=== PATIENT | female | born 1935 | race Caucasian/White ===

== ENCOUNTER 2018-04-15 23:31 | Inpatient (IN) | payer MEDICARE, BC ==
[~2018-04-15] VITALS: Ht 152.4 cm; Wt 83.3 kg
[~2018-04-15 23:31] MED LIST: AMOXICILLIN 50500 MG PO; COUMADIN 2 MG TA2 M1 PO; COUMADIN 3 MG TA3 M1 PO; COUMADIN 5 MG TA5 M1 PO; DIGOXIN125 MCG PO; FISH OIL 1,001000 M2 PO; FUROSEMIDE 20 M20 MG PO; HYDROCHLOROTH12.5 MG PO; KLOR-CON 1010 MEQ PO; LISINOPRIL40 MG PO; MAXZIDE-25 MG1 EACH PO; MECLIZINE HCL25 MG PO; MUCINEX TA600 MG/TA1 PO; OMEGA-31000 M1 PO; ONDANSETRON HCL4 M2 PO; PREDNISONE 20 M20 MG PO; PRINIVIL40 MG PO; SIMVASTATIN20 MG PO; TOPROL XL100 MG PO; TOPROL XL200 MG PO; VITAMIN D1000 UNI1 PO; ZOCOR40 MG PO
[2018-04-15 23:34] VITALS: BP 128/89
[2018-04-15] MEDS ORDERED: ARICEPT10 M1 PO (23:43)
[2018-04-16 00:01] LABS: ABSOLUTE BASOPHILS 0.1 thou/uL (0.0-0.2); ABSOLUTE EOSINOPHILS 0.3 thou/uL (0.0-0.7); ABSOLUTE LYMPHOCYTES 1.5 thou/uL (0.8-5.3); ABSOLUTE MONOCYTES 0.7 thou/uL (0.0-1.2); ABSOLUTE NEUTROPHILS 3.5 thou/uL (1.6-8.1); BASOPHILS 1.3 %; EOSINOPHILS 4.2 %; HEMATOCRIT 41.5 % (37.0-47.0); HEMOGLOBIN 13.8 gm/dL (12.0-15.0); LYMPHOCYTES 25.5 %; MCH 31.7 pg (26.0-34.0); MCHC 33.4 g/dL (28.0-37.0); MONOCYTES 11.1 %; MPV 9.2 fl. (7.2-11.1); NUCLEATED RBCS 0 /100WBC; PLATELET COUNT* 136 thou/uL (150-400); POLYS 57.9 %; RBC 4.36 mil/uL (4.20-5.00); RDW-CV 13.4 % (10.5-14.5)
[2018-04-16 00:10] LABS: APTT 36.3 Seconds (25.0-31.3); INR 2.5; PROTIME 24.1 Seconds (9.20-11.50)
[2018-04-16 00:22] LABS: ANION GAP 2 mmol/L (7-16); BUN 14 mg/dL (7-18); CALCIUM 8.5 mg/dL (8.5-10.1); CHLORIDE 105 mmol/L (98-107); CO2 32 mmol/L (21-32); CREATININE 0.8 mg/dL (0.6-1.3); GLUCOSE 94 mg/dL (70-99); POTASSIUM 3.2 mmol/L (3.5-5.1); SODIUM 139 mmol/L (136-145)
[2018-04-16 00:34] LABS: ALBUMIN 3.4 g/dL (3.4-5.0); ALKALINE PHOSPHATASE 58 U/L (46-116); NT-PRO BRAIN NAT PEPTIDE 425 pg/mL (<300); SGOT 20 U/L (15-37); SGPT 18 U/L (30-65); TOTAL BILIRUBIN 0.5 mg/dL (<0.1-1.0); TOTAL PROTEIN 6.4 g/dL (6.4-8.2); TROPONIN-I LEVEL <0.06 ng/mL (<0.06)
[2018-04-16 00:45] VITALS: BP 128/48
[2018-04-16 01:00] VITALS: BP 141/73
[2018-04-16 04:00] VITALS: BP 128/64
[2018-04-16 08:43] VITALS: BP 121/61
[2018-04-16 10:25] VITALS: BP 121/61
--- NOTE | 2018-04-16 15:55 | EKG ---
[place] [address] ELECTROCARDIOGRAM REPORT Name: FELIPE SINGER Room: [address] IN M.R.#: [id number] Admission: 04/16/18 Attend Phys: Neymar Oseguera MD Discharge: 04/16/18 Date of : 31 Report #: [id number] THIS REPORT FOR: //name// [facility] ED Test Date: 2018-04-15 Test Time: 23:41:04 Pat Name: FELIPE SINGER Department: Room: [facility] Gender: F Swatch Checker: [place] : 1935 Requested By: Carlos Alvarado Order Number: [id number] MD: Kian Johnston Measurements Intervals [place] Rate: 71 P: GA: QRS: -82 QRSD: 184 T: 102 QT: 459 QTc: 499 Interpretive Statements Afib/flut and V-paced complexes No further analysis attempted due to paced rhythm Compared to ECG 11/08/2016 02:42:11 Early repolarization no longer present Prolonged QT interval no longer present Electronically Signed On 04-16-2018 15:55:37 CDT by Kian Johnston [email or web address] <ELECTRONICALLY SIGNED> By: Kian Johnston MD, [facility] 04/16/18 1555 [id number] Kian Johnston MD, [facility] /EPI
== END 2018-04-16 11:15 | disposition home or self-care (01) | DRG 292 ==
LOC: M.ERS 23:31 → M.TBA-ER 04-16 00:38 → M.2W 04-16 00:38
PROVIDERS: Family Medicine; ADMIT Internal Medicine
DX: I11.0 Hypertensive heart disease with heart failure (principal); J96.10 Chronic respiratory failure, unspecified whether with hypoxia or hypercapnia; I50.23 Acute on chronic systolic (congestive) heart failure; I42.9 Cardiomyopathy, unspecified; J98.01 Acute bronchospasm; E89.0 Postprocedural hypothyroidism; I48.91 Unspecified atrial fibrillation; Z90.79 Acquired absence of other genital organ(s); Z95.0 Presence of cardiac pacemaker; Z85.828 Personal history of other malignant neoplasm of skin; Z98.42 Cataract extraction status, left eye; Z98.41 Cataract extraction status, right eye; Z79.01 Long term (current) use of anticoagulants; Z79.899 Other long term (current) drug therapy

== ENCOUNTER 2018-09-27 03:47 | Inpatient (IN) | payer MEDICARE, BC ==
[~2018-09-27] VITALS: Ht 162.6 cm; Wt 75.7 kg
--- NOTE | ~2018-09-27 | OP ---
[address] [address] OPERATIVE REPORT Name: FELIPE SINGER Room: [address] IN ..#: [id number] Admission: 09/27/18 Attend Phys: Elpidio Ospina, Discharge: 09/30/18 Date of : 31 Report #: [id number] THIS REPORT FOR: //name// CC: Kenyon Ospina DATE OF SERVICE: 09/28/2018 PREOPERATIVE DIAGNOSIS: Left closed valgus impacted femoral neck fracture. POSTOPERATIVE DIAGNOSIS: Left closed valgus impacted femoral neck fracture. SURGEON: Amy Rosa DO. RAISER HELPER: Irwin Park DO ANESTHESIA: General. PROCEDURE: 1. In situ fixation of left hip with cannulated screws. 2. Intraoperative physician guided fluoroscopy. ESTIMATED BLOOD LOSS: 100 mL. SPECIMENS: None. DRAINS: None. COMPLICATIONS: None. CONDITION: The patient is stable. DISPOSITION: PACU to Med/Surg floor. ANTIBIOTICS: 2 grams Ancef IV preoperatively. IMPLANTS: Sage 6.7 and 8.0 mm cannulated screw system. INDICATIONS FOR PROCEDURE: The patient is an 83-year-old female who fell onto her left side approximately 2 days ago. She presented to [facility]. X-rays were done, which showed a left femoral neck fracture. A CT confirmed this femoral neck fracture to be valgus impacted and minimally displaced. We did recommend ORIF of the left hip with cannulated screws. She had been seen by Internal Medicine. She was noted to have an INR of 2.2. This subsequently was down and 1.7 the morning of surgery. Therefore, the decision was made to proceed. The benefits, risks, complications, alternatives of this [address] [address] OPERATIVE REPORT Name: FELIPE SINGER Room: [address] IN M.R.#: [id number] Admission: 09/27/18 Attend Phys: Elpidio Ospina, Discharge: 09/30/18 Date of : 33 Report #: [id number] procedure were discussed with the patient in detail. These include but are not limited to bleeding, surgical site infection, neurovascular compromise, malunion, nonunion, hardware failure, continued pain, need for further surgery, DVT, PE as well as the inherent risks of anesthesia. The patient understands these risks and is agreeable to proceed. Consent signed in the preoperative holding area and on the chart at the time of surgery, operative site was marked. DESCRIPTION OF PROCEDURE: The patient was brought to the operating room and placed supine on the operating table. She was administered general anesthetic. She was placed onto the Central fracture table and the left leg placed in the traction boot. The well leg was placed in the Well-Leg mireles. No traction was applied to the operative side. X-rays were taken at this time, which confirmed appropriate fracture reduction. The left hip was then sterilely prepped with ChloraPrep x 2 and allowed to dry for 3 minutes. She was then draped freely in the usual fashion. Time-out was performed to confirm correct patient, site, and procedure. Surgical site markings were identified, all in the room were in agreement. We first marked out the trajectory of the femoral neck as well as the level of the lesser trochanter. An incision was then made on the lateral aspect of the hip starting at the lesser trochanter and extending proximally approximately 6 cm. Dissection was carried through skin and subcutaneous tissues to the level of the IT band. The IT band was then sharply incised. A castaneda elevator was used to lift the vastus off of the lateral aspect of the hip. Next, a K-wire from the [place] 6.7 mm screw set was placed in an inferior position on the neck. The trajectory of the screw was noted to start just at the level of the lesser trochanter. This was passed across the femoral neck with appropriate position confirmed with C-arm fluoroscopy. Next, the same was done with 2 other K wires in a superior anterior and superior posterior position. These were placed parallel to the first screw utilizing the appropriate guide. At this time, we advanced the screws to an appropriate position within the head. We then measured utilizing the depth gauge. Next, the outer cortex was then drilled with the appropriate drill bit and three 6.7 mm screws were placed across the fracture site. There was noted to be not a very good bite with the inferior screw, therefore decision was made at this point to switch that to an 8.0 mm screw. The original screw was removed and an 8.0 mm screw of appropriate length was placed in the inferior position. This was noted to be much better fixation. K-wires were removed at this time. Final x-rays confirmed appropriate fracture reduction as well as screw placement across the femoral neck. Wound was then irrigated with normal saline. Deep tissues, IT band was closed with 0 Vicryl suture. The subcutaneous tissues were closed with 2-0 Vicryl suture and skin reapproximated with michael. The wound was then dressed with a sterile Mepilex dressing. The patient tolerated the procedure well [place] [address] OPERATIVE REPORT Name: FELIPE SINGER Room: [address] [facility] IN [facility].#: [id number] Admission: 09/27/18 Attend Phys: Elpidio Ospina, Discharge: 09/30/18 Date of : 33 Report #: [id number] in stable condition. All needle and sponge counts were correct x 2 and I was present throughout all pertinent portions of the case. By: [id number] Rosa DO /day
[~2018-09-27 03:47] MED LIST changes: +ARICEPT10 M1 PO
[2018-09-27 03:48] VITALS: BP 140/84
[2018-09-27 04:12] LABS: URINE BILIRUBIN NEGATIVE (Negative); URINE BLOOD NEGATIVE (Negative); URINE CLARITY CLEAR; URINE COLOR STRAW; URINE GLUCOSE-RANDOM NEGATIVE (Negative); URINE KETONES NEGATIVE (Negative); URINE LEUKOCYTES-REFLEX TRACE (Negative); URINE NITRITE-REFLEX NEGATIVE (Negative); URINE PROTEIN NEGATIVE (Negative); URINE SPECIFIC GRAVITY <= 1.005 (1.005-1.030); URINE UROBILINOGEN 0.2 E.U./dl (0.2-1.0)
[2018-09-27 04:22] LABS: ABSOLUTE EOSINOPHILS 0.2 thou/uL (0.0-0.7); ABSOLUTE LYMPHOCYTES 1.4 thou/uL (0.8-5.3); ABSOLUTE MONOCYTES 0.5 thou/uL (0.0-1.2); ABSOLUTE NEUTROPHILS 3.2 thou/uL (1.6-8.1); BASOPHILS 0.9 %; HEMATOCRIT 39.4 % (37.0-47.0); HEMOGLOBIN 13.2 gm/dL (12.0-15.0); LYMPHOCYTES 26.4 %; MCH 32.3 pg (26.0-34.0); MCHC 33.5 g/dL (28.0-37.0); MCV 96.2 fL (80.0-100.0); MONOCYTES 8.7 %; MPV 9.4 fl. (7.2-11.1); NUCLEATED RBCS 0 /100WBC; PLATELET COUNT* 132 thou/uL (150-400); RDW-CV 13.9 % (10.5-14.5); WBC 5.3 thou/uL (4.0-11.0)
[2018-09-27 04:29] LABS: CALCIUM 9.1 mg/dL (8.5-10.1); CREATININE 0.8 mg/dL (0.6-1.3); POTASSIUM 3.4 mmol/L (3.5-5.1)
[2018-09-27 04:30] LABS: APTT 31.3 Seconds (25.0-31.3); INR 2.2; PROTIME 22.8 Seconds (9.20-11.50)
[2018-09-27 04:34] LABS: ALBUMIN 3.2 g/dL (3.4-5.0); TOTAL BILIRUBIN 0.7 mg/dL (<0.1-1.0)
[2018-09-27 04:49] LABS: CASTS None Seen /LPF (None Seen); CRYSTALS None Seen /LPF (None Seen); MUCUS 0-3 Light strn/LPF (None Seen); SQUAMOUS 0-3 Few /LPF (0-3); URINE RBC 3-10 Few /HPF (0-2); URINE WBC-REFLEX 6-15 Few /HPF (0-5)
[2018-09-27 05:30] VITALS: BP 123/62
[2018-09-27 05:31] VITALS: BP 141/70
[2018-09-27 08:00] VITALS: BP 106/52
[2018-09-27 11:07] LABS: INR 2.2; PROTIME 22.9 Seconds (9.20-11.50)
--- NOTE | 2018-09-27 12:26 | EKG ---
[place] [address] ELECTROCARDIOGRAM REPORT Name: FELIPE SINGER Room: [address] ADM IN M.R.#: [id number] Admission: 09/27/18 Attend Phys: Elpidio Ospina, Discharge: Date of : 31 Report #: [id number] THIS REPORT FOR: //name// [facility] ED Test Date: 2018-09-27 Test Time: 04:53:15 Pat Name: FELIPE SINGER Department: Room: [facility] Gender: F Steam Fitter: : 1935 Requested By: Haven Durant Order Number: [id number] MD: Sam Cisneros Measurements Intervals [place] Rate: 62 P: 0 MS: 81 QRS: -75 QRSD: 90 T: -80 QT: 423 QTc: 430 Interpretive Statements Ventricular-paced complexes No further analysis attempted due to paced rhythm Compared to ECG 04/15/2018 23:41:04 Atrial fibrillation no longer present Electronically Signed On 09-27-2018 12:26:26 KITCHEN CLERK by Sam Cisneros [email or web address] <ELECTRONICALLY SIGNED> By: Sam Cisneros MD, [facility] 09/27/18 [phone] [id number] Sam Cisneros MD, [facility] /EPI
[2018-09-27 16:00] VITALS: BP 120/52
[2018-09-27 20:00] VITALS: BP 111/51
[2018-09-28 00:31] VITALS: BP 126/56
[2018-09-28 04:28] VITALS: BP 128/63
[2018-09-28 04:39] LABS: HEMATOCRIT 38.3 % (37.0-47.0); HEMOGLOBIN 12.7 gm/dL (12.0-15.0); MCH 31.9 pg (26.0-34.0); MCHC 33.1 g/dL (28.0-37.0); MCV 96.4 fL (80.0-100.0); MPV 9.6 fl. (7.2-11.1); RBC 3.97 mil/uL (4.20-5.00); RDW-CV 13.9 % (10.5-14.5)
[2018-09-28 04:48] LABS: INR 1.7
[2018-09-28 04:59] LABS: CALCIUM 8.3 mg/dL (8.5-10.1); CREATININE 0.8 mg/dL (0.6-1.3); POTASSIUM 3.5 mmol/L (3.5-5.1)
[2018-09-28 06:28] VITALS: BP 128/63
--- NOTE | 2018-09-28 14:58 | 2DMMODE ---
[place] [address] 2 D/M-MODE ECHOCARDIOGRAM Name: FELIPE SINGER Room: [address] IN [facility]#: [id number] Admission: 09/27/18 Attend Phys: Elpidio Olvera Discharge: Date of : 31 Date of Service: 09/28/18 1458 Report #: [id number] THIS REPORT FOR: //name// APPROVED REPORT Study performed: 09/28/2018 14:08:36 EXAM: Comprehensive 2D, Doppler, and color-flow Echocardiogram Patient Location: In-Patient Room #: [facility] Status: routine BSA: 1.81 HR: 60 bpm BP: 134/63 mmHg Other Information Study Quality: Good Indications Chest Pain 2D Dimensions IVSd: 9.95 (7-11mm) LVOT Diam: 20.08 (18-24mm) LVDd: 42.69 mm PWd: 9.84 (7-11mm) Ascending Ao: 30.92 (22-36mm) LVDs: 28.46 (25-40mm) Aortic Root: 29.12 mm Volumes Left Atrial Volume (Systole) LA ESV Index: 90.80 mL/m2 Aortic Valve AoV Peak Max.: 1.55 m/s AO Peak Gr.: 9.64 mmHg LVOT Max P.26 mmHg AO Mean Gr.: 5.24 mmHg LVOT Mean P.32 mmHg LVOT Max V: 1.15 m/s AO V2 VTI: 28.87 cm LVOT Mean V: 0.69 m/s DANYA (VTI): 2.35 cm2 LVOT V1 VTI: 21.39 cm AI [place]: 1.97 m/s2 AI PHT: 654.27 ms TDI Medial E' Max.: 0.16 m/s Lateral E' Max.: 0.16 m/[place] [address] 2 D/M-MODE ECHOCARDIOGRAM Name: LUCRECIAFELIPE NAEEM Room: [address] IN ..#: [id number] Admission: 09/27/18 Attend Phys: Elpidio Olvera Discharge: Date of : 31 Date of Service: 09/28/18 1458 Report #: [id number] Pulmonary Valve PV Peak Max.: 0.90 m/s PV Peak Gr.: 3.27 mmHg Tricuspid Valve RAP Estimate: 5.00 mmHg TR Peak Gr.: 25.69 mmHg RVSP: 31.00 mmHg PA Pressure: 31.00 mmHg Left Ventricle The left ventricle is normal size. There is global hypokinesis of the left ventricle. There is normal left ventricular wall thickness. Left ventricular systolic function is mildly decreased. LVEF is 40-45%. The left ventricular diastolic function is normal. Right Ventricle Right ventricle is dilated. The right ventricular systolic function is normal. Pacemaker lead is present in the right ventricle. Atria Left atrium is severely dilated. Right atrium is dilated. Aortic Valve The aortic valve is normal in structure. Mild aortic regurgitation. There is no aortic valvular stenosis. Mitral Valve The mitral valve is normal in structure. Trace mitral regurgitation. No evidence of mitral valve stenosis. Tricuspid Valve The tricuspid valve is normal in structure. Mild tricuspid regurgitation. estimate pa pressure 35 mm Hg Pulmonic Valve The pulmonary valve is normal in structure. Mild pulmonic regurgitation. Great Vessels The aortic root is normal in size. IVC is normal in size and collapses >50% with inspiration. Pericardium There is no pericardial effusion. <Conclusion> [place] [address] 2 D/M-MODE ECHOCARDIOGRAM Name: LUCRECIAFELIPETra HARTLEY Room: [address] IN [facility]#: [id number] Admission: 09/27/18 Attend Phys: Elpidio Olvera Discharge: Date of : 31 Date of Service: 09/28/18 1458 Report #: [id number] LVEF is 40-45%. Left atrium is severely dilated. <ELECTRONICALLY SIGNED> By: Kenyon Mares MD, [facility] 09/28/18 1458 1458 1458 Kenyon Mares MD, FACC /INF
[2018-09-28 15:40] VITALS: BP 117/68
[2018-09-28 20:00] VITALS: BP 135/54
[2018-09-29 00:25] VITALS: BP 107/59
[2018-09-29 03:49] VITALS: BP 110/70
[2018-09-29 03:56] LABS: HEMATOCRIT 34.4 % (37.0-47.0); HEMOGLOBIN 11.5 gm/dL (12.0-15.0)
[2018-09-29 04:29] LABS: INR 1.3; PROTIME 13.2 Seconds (9.20-11.50)
[2018-09-29 08:00] VITALS: BP 105/55
[2018-09-29 09:58] LABS: CALCIUM 8.2 mg/dL (8.5-10.1); CREATININE 0.9 mg/dL (0.6-1.3); POTASSIUM 4.2 mmol/L (3.5-5.1)
[2018-09-29 09:59] LABS: ABSOLUTE LYMPHOCYTES 1.1 thou/uL (0.8-5.3); ABSOLUTE MONOCYTES 0.9 thou/uL (0.0-1.2); ABSOLUTE NEUTROPHILS 4.8 thou/uL (1.6-8.1); BASOPHILS 0.6 %; EOSINOPHILS 0.6 %; LYMPHOCYTES 16.5 %; MCH 32.3 pg (26.0-34.0); MCHC 33.3 g/dL (28.0-37.0); MONOCYTES 13.1 %; MPV 10.4 fl. (7.2-11.1); NUCLEATED RBCS 0 /100WBC; PLATELET COUNT* 99 thou/uL (150-400); POLYS 69.2 %; RBC 3.54 mil/uL (4.20-5.00); RDW-CV 13.9 % (10.5-14.5); WBC 6.9 thou/uL (4.0-11.0)
[2018-09-29 12:27] VITALS: BP 137/50
[2018-09-29 16:14] VITALS: BP 123/62
[2018-09-29 20:00] VITALS: BP 143/62
[2018-09-30 04:17] LABS: HEMATOCRIT 35.3 % (37.0-47.0); HEMOGLOBIN 11.8 gm/dL (12.0-15.0)
[2018-09-30 04:35] LABS: INR 1.1; PROTIME 11.6 Seconds (9.20-11.50)
[2018-09-30 08:42] VITALS: BP 127/64
[2018-09-30 08:47] VITALS: BP 127/64
[2018-09-30] MEDS ORDERED: HYDROCODON-ACE1 EAC7 PO (10:44)
[2018-09-30] MEDS ORDERED: LIDOCAINE1 EACH TOP (15:26)
[2018-09-30] MEDS ORDERED: METAMUCIL1 EAC1 PO (15:28)
[2018-09-30] MEDS ORDERED: MILK OF MA2400 MG/10 PO (15:29)
[2018-09-30] MEDS ORDERED: PEPCID20 MG PO (15:30)
[2018-09-30] MEDS ORDERED: TYLENOL EXTRA500 MG PO (15:31)
[2018-09-30] MEDS ORDERED: ONDANSETRON HCL4 M2 PO (15:32)
== END 2018-09-30 16:50 | DRG 481 ==
LOC: M.ERS 03:47 → M.TBA-ER 04:40 → M.ORTHSURG 04:40 → M.2W 05:41 → M.ORTHSURG 09-28 12:11
PROVIDERS: Internal Medicine; Orthopaedic Surgery; Personal Emergency Response Attendant; ADMIT Family Medicine
PROC: 0QH704Z Insertion of Internal Fixation Device into Left Upper Femur, Open Approach (ICD-10-PCS; principal; 2018-09-28)
DX: S72.002A Fracture of unspecified part of neck of left femur, initial encounter for closed fracture (principal); I42.9 Cardiomyopathy, unspecified; D68.59 Other primary thrombophilia; I50.22 Chronic systolic (congestive) heart failure; Q89.3 Situs inversus; I48.91 Unspecified atrial fibrillation; I11.0 Hypertensive heart disease with heart failure; F03.90 Unspecified dementia, unspecified severity, without behavioral disturbance, psychotic disturbance, mood disturbance, and anxiety; M21.052 Valgus deformity, not elsewhere classified, left hip; Z85.828 Personal history of other malignant neoplasm of skin; Z90.710 Acquired absence of both cervix and uterus; Z95.0 Presence of cardiac pacemaker; Z98.42 Cataract extraction status, left eye; Z98.41 Cataract extraction status, right eye; Z79.899 Other long term (current) drug therapy; Z79.01 Long term (current) use of anticoagulants; W01.0XXA Fall on same level from slipping, tripping and stumbling without subsequent striking against object, initial encounter; Y93.01 Activity, walking, marching and hiking; Y92.098 Other place in other non-institutional residence as the place of occurrence of the external cause; Y99.8 Other external cause status

== ENCOUNTER → 2019-11-18 | Outpatient (CLI) | payer MEDICARE, BC ==
[~2019-11-18] VITALS: Ht 170.2 cm; Wt 71.4 kg
[~2019-11-18] MED LIST changes: +CELEXA 20 MG TA20 MG PO; +ELIQUIS2.5 MG PO; +HYDROCODON-ACE1 EAC7 PO; +KEFLEX500 M1 PO; +LIDOCAINE1 EACH TOP; +MELATONIN5 M1 PO; +METAMUCIL1 EAC1 PO; +MILK OF MA2400 MG/10 PO; +OMEGA-3 FISH1200 MG PO; +PEPCID20 MG PO; +TRAMADOL 50 MG50 MG PO; +TYLENOL EXTRA500 MG PO
[2019-11-18 12:57] VITALS: BP 140/74
[2019-11-18 13:06] LABS: ABSOLUTE BASOPHILS 0.1 thou/uL (0.0-0.2); ABSOLUTE EOSINOPHILS 0.1 thou/uL (0.0-0.7); ABSOLUTE LYMPHOCYTES 1.3 thou/uL (0.8-5.3); ABSOLUTE MONOCYTES 0.4 thou/uL (0.0-1.2); ABSOLUTE NEUTROPHILS 3.1 thou/uL (1.6-8.1); BASOPHILS 1.6 %; EOSINOPHILS 1.9 %; HEMATOCRIT 41.7 % (37.0-47.0); HEMOGLOBIN 14.2 gm/dL (12.0-15.0); LYMPHOCYTES 25.8 %; MCH 33.1 pg (26.0-34.0); MCHC 34.1 g/dL (28.0-37.0); MCV 97.1 fL (80.0-100.0); MONOCYTES 7.4 %; NUCLEATED RBCS 0 /100WBC; PLATELET COUNT* 184 thou/uL (150-400); POLYS 63.3 %; RBC 4.29 mil/uL (4.20-5.00); RDW-CV 14.2 % (10.5-14.5); WBC 4.9 thou/uL (4.0-11.0)
[2019-11-18 13:12] LABS: CALCIUM 8.7 mg/dL (8.5-10.1); CREATININE 0.7 mg/dL (0.6-1.3); POTASSIUM 4.5 mmol/L (3.5-5.1)
--- NOTE | 2019-11-18 13:59 | 2DMMODE ---
[place] [address] 2 D/M-MODE ECHOCARDIOGRAM Name: FELIPE SINGER Room: [facility]#: [id number] Admission: 11/18/19 Attend Phys: Cristobal Frye, Discharge: Date of : 31 Date of Service: 11/18/19 1357 Report #: [id number] THIS REPORT FOR: cc: Kenyon Wang MD, David L. MD Holkins, John M. MD [facility] ~ APPROVED REPORT Study performed: 11/18/2019 11:54:52 EXAM: Comprehensive 2D, Doppler, and color-flow Echocardiogram Patient Location: Out-Patient Status: routine BSA: 1.82 HR: 65 bpm Rhythm: NSR Other Information Study Quality: Good Indications Congestive Heart Failure Pacemaker Hypertension/HDD 2D Dimensions IVSd: 11.77 (7-11mm) LVOT Diam: 20.59 (18-24mm) LVDd: 49.60 mm PWd: 11.64 (7-11mm) Ascending Ao: 30.23 (22-36mm) LVDs: 37.37 (25-40mm) Aortic Root: 28.95 mm Volumes Left Atrial Volume (Systole) LA ESV Index: 97.10 mL/m2 Aortic Valve AoV Peak Max.: 1.37 m/s AO Peak Gr.: 7.50 mmHg LVOT Max P.55 mmHg AO Mean Gr.: 4.10 mmHg LVOT Mean P.67 mmHg LVOT Max V: 0.94 m/s AO V2 VTI: 23.13 cm LVOT Mean V: 0.60 m/[place] [address] 2 D/M-MODE ECHOCARDIOGRAM Name: LUCRECIA,FELIPE L Room: [facility]#: [id number] Admission: 11/18/19 Attend Phys: Cristobal Frye, Discharge: Date of : 31 Date of Service: 11/18/19 1357 Report #: [id number] DANYA (VTI): 2.32 cm2 LVOT V1 VTI: 16.09 cm AI [place]: 2.07 m/s2 AI PHT: 657.00 ms Mitral Valve MV Decel. Time: 154.33 ms MV PHT: 44.75 ms MVA (PHT): 4.92 cm2 TDI Medial E' Max.: 0.07 m/s Lateral E' Max.: 0.13 m/s Pulmonary Valve PV Peak Max.: 0.79 m/s PV Peak Gr.: 2.52 mmHg Tricuspid Valve RAP Estimate: 5.00 mmHg TR Peak Gr.: 23.78 mmHg RVSP: 28.00 mmHg PA Pressure: 28.00 mmHg Left Ventricle The left ventricle is normal size. There is abnormal septal motion consistent with LBBB There is normal left ventricular wall thickness. Left ventricular systolic function is mild to moderately decreased. LVEF is 40-45%. Right Ventricle Right ventricle is mildly dilated. The right ventricular systolic function is normal. Pacemaker lead is present in the right ventricle. Atria Left atrium is severely dilated. Right atrium is moderately dilated. Aortic Valve Mild aortic valve sclerosis. Trace aortic regurgitation. There is no aortic valvular stenosis. Mitral Valve The mitral valve is normal in structure. Trace mitral regurgitation. No evidence of mitral valve stenosis. Tricuspid Valve The tricuspid valve is normal in structure. Mild to moderate tricuspid regurgitation. [place] [address] 2 D/M-MODE ECHOCARDIOGRAM Name: FELIPE SINGER Cooper Room: [facility]#: [id number] Admission: 11/18/19 Attend Phys: Cristobal Frye, Discharge: Date of : 31 Date of Service: 11/18/19 1357 Report #: [id number] Pulmonic Valve The pulmonary valve is normal in structure. Mild pulmonic regurgitation. Great Vessels The aortic root is normal in size. IVC is normal in size and collapses >50% with inspiration. Pericardium There is no pericardial effusion. <Conclusion> The left ventricle is normal size. There is normal left ventricular wall thickness. Left ventricular systolic function is mild to moderately decreased. LVEF is 40-45%. Right ventricle is mildly dilated. Left atrium is severely dilated. Right atrium is moderately dilated. Mild aortic valve sclerosis. Trace aortic regurgitation. There is no aortic valvular stenosis. The mitral valve is normal in structure. Trace mitral regurgitation. The tricuspid valve is normal in structure. Mild to moderate tricuspid regurgitation. No pulmonary hypertension. IVC is normal in size and collapses >50% with inspiration. There is no pericardial effusion. There is abnormal septal motion consistent with LBBB Pacemaker lead is present in the right ventricle. <ELECTRONICALLY SIGNED> By: Kian Johnston MD, FACC 11/18/19 1357 1357 1357 Kian Johnston MD, FACC /INF
[2019-11-18 15:15] VITALS: BP 144/73
[2019-11-18 15:30] VITALS: BP 149/79
[2019-11-18 15:46] VITALS: BP 140/82
[2019-11-18 16:01] VITALS: BP 133/72
--- NOTE | 2019-11-18 16:18 | EKG ---
[place] [address] ELECTROCARDIOGRAM REPORT Name: FELIPE SINGER Room: [facility]#: [id number] Admission: 11/18/19 Attend Phys: Cristobal Frye, Discharge: Date of : 31 Date of Service: 11/18/19 1319 Report #: [id number] THIS REPORT FOR: //name// [facility] Test Date: 2019-11-18 Test Time: 13:19:17 Pat Name: FELIPE SINGER Department: Room: Gender: Sed Special Education Teacher: : 1935 Requested By: Cristobal Frye Order Number: [id number] Renita MD: Kian Johnston Measurements Intervals [place] Rate: 65 P: 0 NM: 230 QRS: -76 QRSD: 176 T: 112 QT: 477 QTc: 496 Interpretive Statements Ventricular-paced rhythm No further analysis attempted due to paced rhythm Compared to ECG 09/27/2018 04:53:15 No significant changes Electronically Signed On 11-18-2019 16:17:17 CDT by Kian Johnston [email or web address] <ELECTRONICALLY SIGNED> By: Kian Johnston MD, [facility] 11/18/19 1617 1319 1319 Kian Johnston MD, [facility] /EPI
--- NOTE | 2019-11-18 17:54 | CARD ---
[address] [address] CARDIAC CATH REPORT Name: FELIPE SINGER Room: [facility]#: [id number] Admission: 11/18/19 Attend Phys: Cristobal Frye MD Discharge: Date of : 31 Report #: [id number] THIS REPORT FOR: //name// cc: Kenyon Wang MD, David L. MD ~ APPROVED REPORT Study performed: 11/18/2019 13:19:22 Patient Status: Out-Patient Room #: Event Personnel: Cristobal Frye Exit Booth Agent, Jacy George RN Logistics Clerk, Kareen Oseguera RN Logistics Clerk, Kathryn Dupree RTR Scrub, Delores Garcia RTR Monitor Exam: Generator Change for a Single Chamber Permanent Pacemaker The patient is a 84 year-old female with a history of . Conscious Sedation Start time: 14:26 End Time: 14:46 Fentanyl 25 mcg Versed 1 mg Ancef 2 grams IV antibiotic was given prior to procedure start. Implanted Devices: Medtronic Erin S SR MRI SureScan. Serial number [id number] Procedure The patient underwent informed consent. We discussed the details of the procedure including the risks, which include, but not limited to bleeding, infection, vascular damage, cardiac perforation, and pneumothorax. After informed consent was obtained the patient was brought to the interventional radiology laboratory. The area of the left chest was prepped and draped in sterile fashion. Local anesthesia was achieved with 1% lidocaine. After an initial incision was made in the existing single-chamber pulse generator was explanted using electrocautery and blunt dissection. The generator was detached from the ventricular lead. Ventricular lead threshold and sensing were checked and deemed to be satisfactory. The device pocket was flushed with antibiotic solution. A new Medtronic single-chamber pulse generator was attached to the ventricular lead. The pulse generator and redundant lead were then replaced within the device pocket. The deep tissues were closed with interrupted stitches of 2-0 Vicryl. The skin incision was then closed with a single subcuticular stitch of 4-0 Vicryl. Several Steri-Strips were placed across the [place] [address] CARDIAC CATH REPORT Name: FELIPE SINGER Room: [facility]#: [id number] Admission: 11/18/19 Attend Phys: Cristobal Frye MD Discharge: Date of : 31 Report #: [id number]. The patient tolerated the procedure well and without complication. Electrode Parameters R Wave: 4.1 mV Ventricular Threshold: 1.0 V at 0.40 ms Ventricular Resistance: 513 ohms Generator Change The lead was attached to the appropriate receptacle on the new pulse generator and setscrews firmly tightened to insure adequate contact and stability. The lead and pulse generator were placed into the subcutaneous pocket. Sharp and sponge counts were confirmed to be correct. At this time the pocket was closed subcutaneously with a 2.0 Vicryl and the skin was closed with a 4.0 Vicryl. The operative site was dressed in sterile fashion with benzoin spray, steri strips, stratasorb dressing and the patient was transferred to the floor in stable condition. Complications The patient tolerated the procedure well and there were no complications associated with the procedure. Findings Specimens Removed: Yes old generator Conclusion 1. Single-chamber pacemaker generator at elective replacement. 2. Successful replacement of a single-chamber pacemaker generator. Recommendations 1. Follow-up site check in one week. 2. Follow-up with device interrogation in one to 2 months. <ELECTRONICALLY SIGNED> By: Cristobal Frye MD, [facility] 11/18/19 1753 175 175Micadolph Frye MD, FACC /INF
== END | disposition home or self-care (01) ==
LOC: M.CL 11:21
PROVIDERS: Internal Medicine Cardiovascular Disease
DX: Z45.010 Encounter for checking and testing of cardiac pacemaker pulse generator [battery] (principal); I08.3 Combined rheumatic disorders of mitral, aortic and tricuspid valves; I42.9 Cardiomyopathy, unspecified; I11.0 Hypertensive heart disease with heart failure; I50.9 Heart failure, unspecified; I50.22 Chronic systolic (congestive) heart failure; I48.91 Unspecified atrial fibrillation; F03.90 Unspecified dementia, unspecified severity, without behavioral disturbance, psychotic disturbance, mood disturbance, and anxiety; Z98.890 Other specified postprocedural states; Z79.899 Other long term (current) drug therapy; Z90.710 Acquired absence of both cervix and uterus; Z79.01 Long term (current) use of anticoagulants; Z98.41 Cataract extraction status, right eye; Z98.42 Cataract extraction status, left eye; Z85.828 Personal history of other malignant neoplasm of skin

== ENCOUNTER 2020-11-03 00:59 | Inpatient (IN) | payer MEDICARE, BC ==
[~2020-11-03] VITALS: Ht 160 cm; Wt 79.4 kg
[2020-11-03] VITALS (8 sets, daily range): BP systolic 84–134; BP diastolic 48–78
[2020-11-03] MEDS ORDERED: EFFEXOR XR150 MG PO (01:07)
[2020-11-03] MEDS ORDERED: PROLOPRIM100 MG PO (01:08)
[2020-11-03] MEDS ORDERED: PROBIOTIC1 EAC7 PO (01:09)
[2020-11-03 02:02] LABS: URINE BILIRUBIN NEGATIVE (Negative); URINE BLOOD NEGATIVE (Negative); URINE CLARITY CLEAR; URINE COLOR YELLOW; URINE GLUCOSE-RANDOM NEGATIVE (Negative); URINE KETONES NEGATIVE (Negative); URINE LEUKOCYTES-REFLEX NEGATIVE (Negative); URINE NITRITE-REFLEX NEGATIVE (Negative); URINE PROTEIN TRACE (Negative); URINE SPECIFIC GRAVITY >= 1.030 (1.005-1.030); URINE UROBILINOGEN 0.2 E.U./dl (0.2-1.0)
[2020-11-03 02:26] LABS: BE 1.4 mmol/L (-2 to +3); PO2 82.9 mmHg (75.0-100.0)
[2020-11-03 02:28] LABS: ABSOLUTE LYMPHOCYTES 0.7 thou/uL (0.8-5.3); ABSOLUTE MONOCYTES 0.4 thou/uL (0.0-1.2); ABSOLUTE NEUTROPHILS 1.5 thou/uL (1.6-8.1); BASOPHILS 0.5 %; EOSINOPHILS 0.5 %; HEMOGLOBIN 13.8 gm/dL (12.0-15.0); LYMPHOCYTES 25.5 %; MCH 32.3 pg (26.0-34.0); MCHC 32.2 g/dL (28.0-37.0); MCV 100.6 fL (80.0-100.0); MONOCYTES 16.5 %; MPV 9.9 fl. (7.2-11.1); NUCLEATED RBCS 0 /100WBC; PLATELET COUNT* 98 thou/uL (150-400); RBC 4.27 mil/uL (4.20-5.00); RDW-CV 13.7 % (10.5-14.5); WBC 2.7 thou/uL (4.0-11.0)
[2020-11-03 02:29] LABS: PCO2 61.1 mmHg (35.0-45.0); pH 7.299 (7.340-7.450)
[2020-11-03 02:29] LABS: CALCIUM 8.1 mg/dL (8.5-10.1); CREATININE 0.8 mg/dL (0.6-1.3); POTASSIUM 3.8 mmol/L (3.5-5.1)
[2020-11-03 02:40] LABS: ALBUMIN 2.9 g/dL (3.4-5.0); TOTAL BILIRUBIN 0.3 mg/dL (<0.1-1.0); TOTAL PROTEIN 6.3 g/dL (6.4-8.2)
[2020-11-03 02:55] LABS: APTT 23.5 Seconds (25.0-31.3); PROTIME 10.3 Seconds (9.20-11.50)
[2020-11-03 03:49] LABS: BE 4.2 mmol/L (-2 to +3)
[2020-11-03 03:52] LABS: PCO2 74.5 mmHg (35.0-45.0); PO2 127.7 mmHg (75.0-100.0); pH 7.271 (7.340-7.450)
--- NOTE | 2020-11-03 05:27 | NUR ---
PATIENT ARRIVED FROM ER VIA CART TO ROOM 200. PT HAS DEMENTIA; LETHARGIC AND NON-RESPONSIVE. PT TESTED POSITIVE FOR COVID IN ER. FAMILY SAID PT WAS IN [facility] FROM 10/27- THEN WAS BROUGHT HOME. PT WAS ON HOSPICE DUE TO END STAGE DEMENTIA. PT BECAME LETHARGIC AND SOA YESTERDAY AFTERNOON AFTER RETURNING HOME FROM [facility] SO FAMILY BROUGHT TO ER. PT POOR HISTORIAN. PT INCONTINENT OF BOWEL/BLADDER, CURRENTLY HAS PUREWICK IN PLACE. PT WITH SLIGHT PINKNESS IN SIMON AREA FROM INCONTINENCE. PT IS CURRENTLY ONBIPAP. PT WITH FLUIDS INFUSING PER DR ORDER. FREQUENTLY USED ITEMS AND CALL LIGHT WITHIN REACH. SIDERAILS UPX4 AND BED ALARM ON. WILL CONTINUE TO MONITOR.
[2020-11-03 08:17] LABS: CALCIUM 8.1 mg/dL (8.5-10.1); CREATININE 0.8 mg/dL (0.6-1.3)
[2020-11-03 08:20] LABS: MAGNESIUM 1.9 mg/dL (1.8-2.4); PHOSPHORUS* 3.8 mg/dL (2.5-4.9)
--- NOTE | 2020-11-03 09:03 | NUR ---
Infection Prevention Note: Spoke with Rj at the Memory Care Unit at [facility]. He reported the patient had a negative Covid 19 rapid test prior to admission to [facility]. Per [facility] there were no prior Covid 19 tests for this patient outside of the [facility]. Patient was at [facility] 10/27 to 11/01, then discharged to home.
[2020-11-03 10:12] LABS: BE 1.1 mmol/L (-2 to +3); PO2 90.1 mmHg (75.0-100.0); pH 7.308 (7.340-7.450)
[2020-11-03 10:13] LABS: PCO2 58.4 mmHg (35.0-45.0)
--- NOTE | 2020-11-03 10:18 | EKG ---
[place] [address] ELECTROCARDIOGRAM REPORT Name: FELIPE SINGER Room: [address] ADM IN [facility].#: [id number] Admission: 11/03/20 Attend Phys: Elpidio Olvera Discharge: Date of : 31 Date of Service: 11/03/20 0103 Report #: [id number] THIS REPORT FOR: //name// [facility] ED Test Date: 2020-11-03 Test Time: 01:03:26 Pat Name: FELIPE SINGER Department: Room: [facility] Gender: F Purchasing And Fiscal Clerk: PAOLA : 1935 Requested By: Haven Durant Order Number: [id number] MD: Kenyon Mares Measurements Intervals [place] Rate: 80 P: [place]: QRS: -89 QRSD: 177 T: 94 QT: 448 QTc: 517 Interpretive Statements Afib/flutter and ventricular-paced rhythm No further analysis attempted due to paced rhythm Compared to ECG 11/18/2019 13:19:17 No significant changes Electronically Signed On 11-03-2020 10:18:08 CDT by Kenyon Mares [email or web address] <ELECTRONICALLY SIGNED> By: Kenyon Mares MD, [facility] 11/03/20 1018 2 Kenyon Mares MD, [facility] /EPI
--- NOTE | 2020-11-03 13:12 | NUR ---
Pt covid positive, in enhanced precautions. Pt also has dementia. CM spoke with Pt's granddtr/caregiver, , via phone. Per dtr, Pt recently dc from [facility], on 11/01, after a 5-day respite stay. Per granddtr, prior to Pt going to [facility], she was able to walk, talk and eat. Granddtr stated that when they went to pick her up, she was no longer able to do any of those things, it took 3 people to get Pt into the care, Pt has spoken or eaten since being home. Pt was not given all of her meds while at respite and granddtr believes that she was left in a broda chair. Pt is current with [facility], per granddtr, hospice told them that they would check on Pt during her respite stay daily, per granddtr, she is unsure if this occured, d/t the obvious decline in Pt's condition. Per dtr, they are wanting to switch Pt to [facility] at hi. Granddtr stated that she spoke with hospitalist today, informed of prognosis and POC. Per dtr, if Pt's condition does not improve, they would not want Pt to remain in the hospital, but would prefer her dc to home with [facility]...if this occurs over the weekend, contact Jeimy at [facility] [phone] to inform of the referral and to initiate the hospice dc. Pt has a hospital bed, o2, walker and transport chair at home. Pt resides at home with her and granddtr, is unable to assist with any cares. Per granddtr, Pt does have bx sometimes. Pt is currently on bipap at 40L fio2 is 40%. CM following.
--- NOTE | 2020-11-03 18:59 | NUR ---
Pt lethargic and not responsive for most of shift. On BIPAP until early this afternoon; placed on HFC at 5L. O2 sats mid-90s. Pt took some water late in shift, and just requested something to eat. MAGAZINE FILLER to bring pudding in for patient. VSS, though BP 84/48 at beginning of shift. V-paced per monitor. Spoke with son, Eliseo, on two occasions today for updates. Will continue to monitor.
[2020-11-04 00:43] VITALS: BP 118/58
--- NOTE | 2020-11-04 02:04 | NUR ---
BEGINNING OF SHIFT PATIENT WAS STILL DROWSY BUT DID AWAKEN. WAS ABLE TO GET PATIENT TO TAKE A FEW DRINKS BUT WOULD NOT STAY AWAKE LONG ENOUGH TO TAKE HER PILLS. PAGED DR. SOSA TO RESTART HER FLUIDS DUE TO PATIENT NOT EATING AND DRINKING. NORMAL SALINE WAS STARTED AT 100 ML/HR.
[2020-11-04 03:59] LABS: HEMATOCRIT 43.2 % (37.0-47.0); HEMOGLOBIN 13.7 gm/dL (12.0-15.0); MCH 32.3 pg (26.0-34.0); MCHC 31.8 g/dL (28.0-37.0); MCV 101.6 fL (80.0-100.0); MPV 9.9 fl. (7.2-11.1); RBC 4.25 mil/uL (4.20-5.00); RDW-CV 13.7 % (10.5-14.5)
[2020-11-04 04:18] LABS: ALBUMIN 2.6 g/dL (3.4-5.0); CALCIUM 7.6 mg/dL (8.5-10.1); CREATININE 0.6 mg/dL (0.6-1.3); TOTAL BILIRUBIN 0.2 mg/dL (<0.1-1.0); TOTAL PROTEIN 6.1 g/dL (6.4-8.2)
[2020-11-04 04:25] LABS: WBC 1.7 thou/uL (4.0-11.0)
[2020-11-04 04:55] VITALS: BP 118/64
[2020-11-04 05:07] LABS: HEPATITIS B SURFACE AG Negative (Negative); HIV-1/HIV-2 ANTIBODY Non Reactive (Non Reactive)
[2020-11-04 12:22] VITALS: BP 116/57
[2020-11-04 16:43] VITALS: BP 129/57
--- NOTE | 2020-11-04 17:44 | NUR ---
PT IS ALERT AND ORIENTED TO SELF PT HAS BEEN AWAKE AND ALERT ALL DAY IS A SET UP FOR FOOD AND HAS EATEN BITES T/O DAY PT DID NOT WANT TO TAKE MEDS THIS AM KEPT MOUTH CLOSED AND WOULD NOT OPEN TALKED WITH SON AND [id number] STATED PT DOESN'T ALWAYS TAKE THEM BUT DOES NOT TAKE THEM CRUSHED WHEN SHE DOES SHE USUALLY JUST TAKES 1-2 ON A SPOON WITH A DRINK OF WATER AFTER PT IS ON 3L NC VPACED ON THE MONITOR INCONTINENT HAS PUREWICK NO BM TODAY IV FLUIDS STOPPED DENIES PAIN CALL LIGHT IN REACH
[2020-11-04 20:00] VITALS: BP 144/74
[2020-11-05] VITALS: BP 132/59
[2020-11-05 03:30] VITALS: BP 145/71
--- NOTE | 2020-11-05 04:25 | NUR ---
Oriented x 1. She is cooperative. She has purewick to suction. Vitals are stable O2 is 3L high flow n/c. Lungs are clear and diminished. I told her that her son, Kenyon called and she smiled. She took all her bedtime meds without difficulty. She has been turned every 2 hours. she has slept well.
[2020-11-05 04:51] LABS: ALBUMIN 2.4 g/dL (3.4-5.0); CALCIUM 7.9 mg/dL (8.5-10.1); CREATININE 0.6 mg/dL (0.6-1.3); MAGNESIUM 1.9 mg/dL (1.8-2.4); POTASSIUM 3.6 mmol/L (3.5-5.1); TOTAL BILIRUBIN 0.3 mg/dL (<0.1-1.0); TOTAL PROTEIN 5.4 g/dL (6.4-8.2)
[2020-11-05 05:04] LABS: HEMATOCRIT 41.1 % (37.0-47.0); HEMOGLOBIN 13.4 gm/dL (12.0-15.0); MCH 32.5 pg (26.0-34.0); MCHC 32.6 g/dL (28.0-37.0); MCV 99.9 fL (80.0-100.0); MPV 9.7 fl. (7.2-11.1); RBC 4.12 mil/uL (4.20-5.00); RDW-CV 13.5 % (10.5-14.5); WBC 3.1 thou/uL (4.0-11.0)
[2020-11-05 05:13] LABS: PREALBUMIN 12.8 mg/dL (18.0-35.7)
[2020-11-05 09:00] VITALS: BP 152/98
[2020-11-05 12:21] VITALS: BP 132/66
--- NOTE | 2020-11-05 17:31 | NUR ---
PT IS ALERT AWAKE ORIENTED TO SELF FEW WORDS BUT PLEASANT AND SMILING ATE SOME FOOD T/O THE DAY DID TAKE ALL OF HER AM MEDS 1-2 AT A TIME WITH LOTS OF WATER TO SWALLOW PT IS NOW MED SURG STATUS WAS VPACED ON THE MONITOR NOT ALWAYS PACING 3L NC INCONTINENT ASSIST X1-2 PUREWICK WITH DARK YELLOW URINE VIRAL IV CONT DENIES PAIN FAMILY UPDATED ON CONDITION CALL LIGHT IN REACH BUT DOES NOT USE
[2020-11-05 20:45] VITALS: BP 145/87
[2020-11-06 05:22] VITALS: BP 166/76
--- NOTE | 2020-11-06 06:04 | NUR ---
Oriented x 1 but cooperative. She is incontinent and has a purewick to suction. She did have a large,incontinent BM this shift. She has been repositioned every 2-3 hours. Her buttocks are slightly red. Urine specimen from straight cath sent and MRSA swab sent to lab this am.
[2020-11-06 09:00] VITALS: BP 145/78
[2020-11-06 09:44] LABS: CALCIUM 8.7 mg/dL (8.5-10.1); CREATININE 0.5 mg/dL (0.6-1.3); POTASSIUM 3.3 mmol/L (3.5-5.1)
[2020-11-06 12:00] VITALS: BP 138/72
--- NOTE | 2020-11-06 13:35 | NUR ---
RYAN LUCIANO W/PT'S SON/DPOA, MONIKA AND GRNDDTR/CG, VASILE RE D/C PLAN. VASILE STATED SHE NO LONGER WANTS TO D/C WITH [facility] AND SWITCH TO A DIFFERENT COMPANY, THEY HAVE NOT D/C PT NOR HAVE THEY COLLECTED THE DMES. FAMILY IS OK W/PT RTRN HOME COVID POSITVE, PT SPOUSE, GRNDDTR/CG AND SON, MONIKA, HAVE ALL TESTED POSITIVE WITH COVID. RYAN LUCIANO W/JOSE FROM [facility]. PT HAS BEEN REVOKED FROM [facility] D/T HOSPITAL ADMISSION. [facility] IS WILLING/ABLE TO RESUME CARE. THEY WILL ADMIT PT HAS PT'S HOME SO FAMILY WILL NEED TO BRING O2 TANK TO HOSPITAL AT D/C. AT D/C UPDATED CLINICALS WILL NEED TO BE FAXED TO [facility] AT [phone]. PHONE - [phone]. PT ROUNDS: PT WILL REMAIN HOSPITALIZED TO WORK TO TITRATE O2 ABLE.
--- NOTE | 2020-11-06 15:09 | NUR ---
ASSUMED PT CAREA T 0730. PT IS ALERT, ORIENTED TO PERSON AND RESPONDS SLOWLY TO QUESTIONS. ASSESSMENT COMPLETED. PT REMAINS ON ISOLATION PRECAUTIONS FOR COVID. MEDICATIONS ADMINISTERED ORDERED. PT TAKES 1 PILL AT A TIME, WITH CUEING TO DRINK AND SWALLOW. ROUNDING COMPLETED AND PT ASSISTED WITH REPOSITIONING TO PROMOTE COMFORT. PT REQUIRES ENCOURAGEMENT AND ASSIST WITH MEALS. SAFETY MEASURES IN PLACE.
[2020-11-06 16:00] VITALS: BP 135/76
[2020-11-06 21:30] VITALS: BP 147/72
--- NOTE | 2020-11-06 21:30 | NUR ---
RECEIVED REPORT AND ASSUMED CARE OF PT AT 1930, ASSESSMENT COMPLETED AT THIS TIME. PT ORIENTED TO SELF ONLY. PT DOES NOT ASSIST WITH CARE OR TURNING. PT VERY STIFF. TOOK HS MEDS WITHOUT DIFFICULTY. O2 ON AT 3L/HFC, HOB ELEVATED, NO SOA NOTED. PT INCONT OF URINE, PUREWICK IN PLACE AND FUNCTIONING WELL. WILL CONT TO MONITOR AND ASSIST NEEDED. REMAINS IN ISOLATION FOR COVID.
[2020-11-07 05:50] VITALS: BP 144/68
--- NOTE | 2020-11-07 06:10 | NUR ---
PT TOLERATING FLUIDS AND PO MEDS. REPOSITIONED IN BED, NO BREAKDOWN NOTED. PUREWICK IN PLACE AND WORKING WELL. HS GOALS OF REST AND COMFORT ACHIEVED. HOURLY ROUNDING OBSERVED.
[2020-11-07 09:33] LABS: HEMATOCRIT 42.3 % (37.0-47.0); HEMOGLOBIN 13.7 gm/dL (12.0-15.0); MCH 31.9 pg (26.0-34.0); MCHC 32.5 g/dL (28.0-37.0); MCV 98.1 fL (80.0-100.0); RBC 4.32 mil/uL (4.20-5.00); RDW-CV 13.1 % (10.5-14.5); WBC 4.3 thou/uL (4.0-11.0)
[2020-11-07 09:44] LABS: CALCIUM 8.1 mg/dL (8.5-10.1); CREATININE 0.5 mg/dL (0.6-1.3); POTASSIUM 3.7 mmol/L (3.5-5.1)
--- NOTE | 2020-11-07 11:23 | NUR ---
olivia lft vm with adria. olivia spk with kirk villarreal. cm informed [facility] needs family to contact them to initiate readmission, per adria. adria stated [facility] is willing to resume care. cm advised [facility] to bring o2 to hospital. cm informed rnramesh, to contact [facility] with time and d/c instructions b/c he has questions about signing d/c paperwork as dpoa and needed to instructed about covid protocol. family will provide transportation.
--- NOTE | 2020-11-07 11:56 | NUR ---
ASSUMED PT CARE AT 0730. PT IS ALERT AND ORIENTED TO SELF AND PLEASANTLY CONFUSED. ASSESSMENT COMPLETED. SAFETY MEASURES IN PLACE. PT MONITORED EVERY HOUR AND ASSISTED WITH REPOSITIONING Q2H. NEW ORDERS RECIEVED TO DISCHARGE PT TO HOME. DISCHARGE INSTRUCTIONS REVIEWED WITH PT'S SON WHO VERBALIZED UNDERSTANDING. LAST TX OF IV ANTIBIOTICS ADMINISTERED BEFORE PT DISCHARGED.
[2020-11-07 12:53] VITALS: BP 130/65
--- NOTE | 2020-11-07 15:10 | NUR ---
PT. DISCHARGED TO HOME WITH HOSPICE PRIOR TO O.T. EVAL. PLEASE ORDER FURTHER O.T. SERVICES IF NEEDED.
== END 2020-11-07 13:30 | disposition hospice, home (50) | DRG 177 ==
LOC: M.ERS 00:59 → M.2W 03:17 → M.TBA-ER 03:17 → M.2W 04:05
PROVIDERS: Family Medicine; Internal Medicine; Personal Emergency Response Attendant; ADMIT Family Medicine; ATTEND Family Medicine
PROC: 5A09357 Assistance with Respiratory Ventilation, Less than 24 Consecutive Hours, Continuous Positive Airway Pressure (ICD-10-PCS; principal; 2020-11-03)
PROC: 5A0935A Assistance with Respiratory Ventilation, Less than 24 Consecutive Hours, High Flow/Velocity Cannula (ICD-10-PCS; principal; 2020-11-03)
PROC: XW033E5 Introduction of Remdesivir Anti-infective into Peripheral Vein, Percutaneous Approach, New Technology Group 5 (ICD-10-PCS; 2020-11-03)
PROC: 5A0935A Assistance with Respiratory Ventilation, Less than 24 Consecutive Hours, High Flow/Velocity Cannula (ICD-10-PCS; 2020-11-04)
PROC: 5A0935A Assistance with Respiratory Ventilation, Less than 24 Consecutive Hours, High Flow/Velocity Cannula (ICD-10-PCS; 2020-11-05)
PROC: 5A0935A Assistance with Respiratory Ventilation, Less than 24 Consecutive Hours, High Flow/Velocity Cannula (ICD-10-PCS; 2020-11-06)
PROC: 5A0935A Assistance with Respiratory Ventilation, Less than 24 Consecutive Hours, High Flow/Velocity Cannula (ICD-10-PCS; 2020-11-07)
DX: U07.1 COVID-19 (principal); J96.01 Acute respiratory failure with hypoxia; G92 Toxic encephalopathy; J96.02 Acute respiratory failure with hypercapnia; J12.82 Pneumonia due to coronavirus disease 2019; E44.0 Moderate protein-calorie malnutrition; I50.22 Chronic systolic (congestive) heart failure; Q89.3 Situs inversus; D68.69 Other thrombophilia; E66.9 Obesity, unspecified; F03.90 Unspecified dementia, unspecified severity, without behavioral disturbance, psychotic disturbance, mood disturbance, and anxiety; I48.91 Unspecified atrial fibrillation; I25.10 Atherosclerotic heart disease of native coronary artery without angina pectoris; Z66 Do not resuscitate; Z51.5 Encounter for palliative care; Z68.31 Body mass index [BMI] 31.0-31.9, adult; Z90.710 Acquired absence of both cervix and uterus; Z95.0 Presence of cardiac pacemaker; Z85.828 Personal history of other malignant neoplasm of skin; Z98.42 Cataract extraction status, left eye; Z98.41 Cataract extraction status, right eye; Z79.01 Long term (current) use of anticoagulants; Z79.899 Other long term (current) drug therapy; Z28.89 Immunization not carried out for other reason